=== PATIENT | male | born 1970 | race Caucasian/White ===

== ENCOUNTER 2016-05-17 06:43 | Emergency (ER) | payer BC ==
[2016-05-17] MEDS ORDERED: NS 0.9% 1000 ML* 3,000 ML IV ONE (07:33)
[2016-05-17 07:50] LABS: Hematocrit 46 % (42-52); Hemoglobin 15.3 g/dl (14.0-18.0); Mean Corpuscular HGB Conc 33 g/dl (31-36); Mean Corpuscular Hemoglobin 30 pg (27-31); Mean Corpuscular Volume 89 fL (80-94); Mean Platelet Volume 10 um3 (7.4-10.4); Red Blood Count 5.14 10^6/ul (4.0-5.4); Red Cell Distribution Width 13 % (10.5-15); White Blood Count 6.7 10^3/ul (3.5-10.8)
[2016-05-17 08:02] LABS: Albumin 4.4 g/dL (3.2-5.2); BUN/Creatinine Ratio 16.3 (8-20); Calcium 9.3 mg/dL (8.6-10.3); EGFR African American 123.1 (>60); EGFR Non-African American 95.7 (>60); Globulin 3.1 g/dL (2-4); Magnesium 2.2 mg/dL (1.9-2.7); Potassium 3.8 mmol/L (3.5-5.0); Total Bilirubin 0.7 mg/dL (0.2-1.0); Total Protein 7.5 g/dL (6.4-8.9)
[2016-05-17 08:11] LABS: TSH (Thyroid Stimulating Horm) 2.71 mcIU/mL (0.34-5.60)
--- NOTE | 2016-05-17 08:18 | RAD ---
HISTORY: Chest pain pneumonia CHF COMPARISONS: 05/10/2009 VIEWS: 2: Frontal dual-energy and lateral views of the chest. FINDINGS: CARDIOMEDIASTINAL SILHOUETTE: The cardiomediastinal silhouette is normal. NIKKY: The nikky are normal. PLEURA: There is mild elevation of the right hemidiaphragm LUNG PARENCHYMA: The lungs are clear. ABDOMEN: The upper abdomen is clear. There is no subphrenic gas. BONES AND SOFT TISSUES: No bone or soft tissue abnormalities are noted. OTHER: None. IMPRESSION: MILD ELEVATION OF THE RIGHT HEMIDIAPHRAGM. NO ACTIVE CARDIOPULMONARY DISEASE.
[2016-05-17 10:53] VITALS: BP 120/81
--- NOTE | 2016-05-17 13:27 | ED ---
Adriana Hardin SooYoung, scribed for Brandon Nur MD on 05/17/16 at 0705 . Palpitations / Dysrhythmia - HPI Summary HPI Summary: A 46 y/o M presents to ED with c/o intermittent, daily episodes of heat racing onset 4 days ago. He had multiple episodes through the day, two days ago. His pulse at home this AM was 118 bpm, and he states it "felt regular." Associated sx: mild CP onset yesterday described as tightness and non-radiating; mild pulsing PAGE, mild dizziness, chills. Denies SOB, abd pain, nausea, diarrhea, fever, cough. Pert PMHx: episodes of tachycardia caused by dehydration. Fasting glucose this AM was 118 at home. No recent SHx. Non-smoker. Occasional EtOH. No weight changes. He notes being under a bit more stress lately than normal. - History of Current Complaint Chief Complaint: EDDysrhythmPalp Hx Obtained From: Patient Onset/Duration: Lasting Days - intermittent episodes, Still Present Character: Fast Associated Signs & Symptoms: Dizzy - mild, Chest Pain - mild - Allergy/Home Medications Allergies/Adverse Reactions: Allergies Allergy/AdvReac Type Severity Reaction Status Date / Time No Known Allergies Allergy Verified 07/25/15 18:54 PMH/Surg Hx/FS Hx/Imm Hx Previously Healthy: Yes Psychiatric History: Reports: Hx Anxiety - Surgical History Surgery Procedure, Year, and Place: LEFT EAR SURGERY TO REPAIR MASTOID BONE Infectious Disease History: No Infectious Disease History: Denies: Traveled Outside the [place] in Last 30 Days - Family History Known Family History: Negative: Cardiac Disease, Hypertension, Diabetes - Social History Occupation: Employed Full-time Lives: With Family Alcohol Use: Occasionally Hx Substance Use: No Substance Use Type: Reports: None Hx Tobacco Use: No Smoking Status (MU): Never Smoked Tobacco Review of Systems Positive: Chills. Negative: Fever Positive: Palpitations - heart racing, Chest Pain - mild, non-radiating Negative: Shortness Of Breath, Cough Negative: Abdominal Pain, Diarrhea, Nausea Neurological: Other - mild dizziness Positive: Headache - mild All Other Systems Reviewed And Are Negative: Yes Physical Exam - Summary Physical Exam Summary: The patient is well-nourished in no acute distress and in no acute pain. The skin is warm and dry and skin color reflects adequate perfusion. HEENT: The head is normocephalic and atraumatic. The pupils are equal and reactive. The conjunctivae are clear and without drainage. Nares are patent and without drainage. Mouth reveals moist mucous membranes and the throat is without erythema and exudate. The external ears are intact. The ear canals are patent and without drainage. The tympanic membranes are intact. THYROID WNL. Neck is supple with full range of motion and non-tender. There are no carotid bruits. There is no neck vein distension. Respiratory: Chest is non-tender. Lungs are clear to auscultation and breath sounds are symmetrical and equal. Cardiovascular: Heart is TACHYCARDIC with normal rhythm. There is no murmur or rub auscultated. There is no peripheral edema and pulses are symmetrical and equal. NO REPRODUCIBLE CHEST TENDERNESS WITH PALPATION. Abdomen: The abdomen is soft and non-tender. There are normal bowel sounds heard in all four quadrants and there is no organomegaly palpated. Musculoskeletal: There is no back pain noted. Extremities are non-tender with full range of motion. There is good capillary refill. There is no peripheral edema or calf tenderness elicited. Neurological: Patient is alert and oriented to person, place and time. The patient has symmetrical motor strength in all four extremities. Cranial nerves are grossly intact. Deep tendon reflexes are symmetrical and equal in all four extremities. Psychiatric: The patient has an appropriate affect and does not exhibit any anxiety or depression. Triage Information Reviewed: Yes Vital Signs On Initial Exam: Initial Vitals Temp Pulse Resp BP Pulse Ox 98.0 F 125 18 130/89 97 05/17/16 06:52 05/17/16 06:52 05/17/16 06:52 05/17/16 06:52 05/17/16 06:52 Vital Signs Reviewed: Yes Diagnostics - Vital Signs Vital Signs Temp Pulse Resp BP Pulse Ox 05/17/16 06:52 98.0 F 125 18 130/89 97 - Laboratory Lab Results: Lab Results 05/17/16 05/17/16 05/17/16 Range/Units 07:02 07:02 07:02 WBC 6.7 (3.5-10.8) 10^3/ul RBC 5.14 (4.0-5.4) 10^6/ul Hgb 15.3 (14.0-18.0) g/dl Hct 46 (42-52) % MCV 89 (80-94) fL MCH 30 (27-31) pg MCHC 33 (31-36) g/dl RDW 13 (10.5-15) % Plt Count 244 (150-450) 10^3/ul MPV 10 (7.4-10.4) um3 Neut % (Auto) 62.4 (38-83) % Lymph % (Auto) 22.9 L (25-47) % [place] % (Auto) 13.7 H (1-9) % Eos % (Auto) 0.7 (0-6) % Baso % (Auto) 0.3 (0-2) % Absolute Neuts (auto) 4.2 (1.5-7.7) 10^3/ul Absolute Lymphs (auto) 1.5 (1.0-4.8) 10^3/ul Absolute Monos (auto) 0.9 H (0-0.8) 10^3/ul Absolute Eos (auto) 0 (0-0.6) 10^3/ul Absolute Basos (auto) 0 (0-0.2) 10^3/ul Absolute Nucleated RBC 0.01 10^3/ul Nucleated RBC % 0.1 D-Dimer, Quantitative (Less Than 230) ng/mL Sodium 137 (133-145) mmol/L Potassium 3.8 (3.5-5.0) mmol/L Chloride 106 (101-111) mmol/L Carbon Dioxide 24 (22-32) mmol/L Anion Gap 7 (2-11) mmol/L BUN 14 (6-24) mg/dL Creatinine 0.86 (0.67-1.17) mg/dL Est GFR ( Amer) 123.1 (>60) Est GFR (Non-Af Amer) 95.7 (>60) BUN/Creatinine Ratio 16.3 (8-20) Glucose 113 H (70-100) mg/dL Lactic Acid 1.0 (0.5-2.0) mmol/L Calcium 9.3 (8.6-10.3) mg/dL Magnesium 2.2 (1.9-2.7) mg/dL Total Bilirubin 0.70 (0.2-1.0) mg/dL AST 20 (13-39) U/L ALT 23 (7-52) U/L Alkaline Phosphatase 40 (34-104) U/L Total Creatine Kinase 158 (10-223) U/L Troponin I 0.00 (<0.04) ng/mL B-Natriuretic Peptide ( - 100) pg/mL Total Protein 7.5 (6.4-8.9) g/dL Albumin 4.4 (3.2-5.2) g/dL Globulin 3.1 (2-4) g/dL Albumin/Globulin Ratio 1.4 (1-3) TSH 2.71 (0.34-5.60) mcIU/mL 05/17/16 05/17/16 Range/Units 07:02 07:02 WBC (3.5-10.8) 10^3/ul RBC (4.0-5.4) 10^6/ul Hgb (14.0-18.0) g/dl Hct (42-52) % MCV (80-94) fL MCH (27-31) pg MCHC (31-36) g/dl RDW (10.5-15) % Plt Count (150-450) 10^3/ul MPV (7.4-10.4) um3 Neut % (Auto) (38-83) % Lymph % (Auto) (25-47) % [place] % (Auto) (1-9) % Eos % (Auto) (0-6) % Baso % (Auto) (0-2) % Absolute Neuts (auto) (1.5-7.7) 10^3/ul Absolute Lymphs (auto) (1.0-4.8) 10^3/ul Absolute Monos (auto) (0-0.8) 10^3/ul Absolute Eos (auto) (0-0.6) 10^3/ul Absolute Basos (auto) (0-0.2) 10^3/ul Absolute Nucleated RBC 10^3/ul Nucleated RBC % D-Dimer, Quantitative < 200 (Less Than 230) ng/mL Sodium (133-145) mmol/L Potassium (3.5-5.0) mmol/L Chloride (101-111) mmol/L Carbon Dioxide (22-32) mmol/L Anion Gap (2-11) mmol/L BUN (6-24) mg/dL Creatinine (0.67-1.17) mg/dL Est GFR ( Amer) (>60) Est GFR (Non-Af Amer) (>60) BUN/Creatinine Ratio (8-20) Glucose (70-100) mg/dL Lactic Acid (0.5-2.0) mmol/L Calcium (8.6-10.3) mg/dL Magnesium (1.9-2.7) mg/dL Total Bilirubin (0.2-1.0) mg/dL AST (13-39) U/L ALT (7-52) U/L Alkaline Phosphatase (34-104) U/L Total Creatine Kinase (10-223) U/L Troponin I (<0.04) ng/mL B-Natriuretic Peptide 29 ( - 100) pg/mL Total Protein (6.4-8.9) g/dL Albumin (3.2-5.2) g/dL Globulin (2-4) g/dL Albumin/Globulin Ratio (1-3) TSH (0.34-5.60) mcIU/mL Result Diagrams: 05/17/16 07:02 05/17/16 07:02 Lab Statement: Any lab studies that have been ordered have been reviewed, and results considered in the medical decision making process. - Radiology CXR Xray Interpretation: Positive (See Comments) - IMPRESSION: Mild elevation of the right hemidiaphragm. No active cardiopulmonary dz. Radiology Interpretation Completed By: Radiologist - EKG 1 Cardiac Rate: NL EKG Rhythm: Sinus Tachycardia ST Segment: Non-Specific EKG Interpretation: Q-wave in III, nml axis, poor R-wave progression Re-Evaluation - Re-Evaluation 1 Re-Evaluation Time: 10:21 Change: Improved Comment: Discussed results with pt. Will D/C home to f/u with Dr. Dexter in a week. Course/Dx - Course Assessment/Plan: MDM: Pt is a 46 y/o M with intermittent tachycardia over previous 4 days. Denies SOB, abd pain, nausea, diarrhea, fever, cough. Pert PMHx : tachycardic palpitations related to dehydration. CXR and EKG are normal. Pt given fluids. States he is feeling better on re-eval. Pt stable, d/c home to follow-up with Dr. Dexter in one week. Pt voiced understanding. - Diagnoses Differential Diagnosis/HQI/PQRI: Positive: Coronary Artery Disease, Hypokalemia , Medication Induced, Other - dehydration, pe, Provider Diagnoses: Tachycardia, Dehydration Discharge - Discharge Plan Condition: Stable Disposition: HOME Patient Education Materials: Dehydration (ED), Palpitations (ED) Forms: *Work Release Referrals: Pasquale Dexter MD [Primary Care Provider] - 1 Week Additional Instructions: Follow up with Dr. Dexter within one week. Please return to ED for worsening or new symptoms. The documentation as recorded by the Adriana newsome SooYoung accurately reflects the service I personally performed and the decisions made by , Brandon Nur MD.
== END 2016-05-17 10:54 | disposition home or self-care (01) ==
LOC: ED 06:43
DX: R00.0 Tachycardia, unspecified (principal); E86.0 Dehydration; R07.9 Chest pain, unspecified; R04.2 Hemoptysis; R00.2 Palpitations; R51 Headache
CPT/HCPCS: 36415; 71020; 80053; 82550; 83605; 83735; 83880; 84443; 84484; 85025; 85379; 93005; 96360; 99282